=== PATIENT | female | born 1935 | race Caucasian/White ===

== ENCOUNTER 2019-05-16 21:45 | Inpatient (IN) ==
[2019-05-16 22:14] LABS: ABG Base Excess 6 mEq/L (-2 to 3); ABG HCO3 32 mEq/L (21-27); ABG Oxygen Saturation 94 % (95-98); ABG PCO2 55 mmHg (35-45); ABG PH 7.38 pH Units (7.32-7.45); ABG PO2 74 mmHg (85-104); ABG TCO2 34 mEq/L (20-26)
[2019-05-16] MEDS ORDERED: Naloxone 0.4 MG/ML INJ IVP PRN (22:16)
[2019-05-16 23:00] LABS: Basophils % 0.1 %; Hematocrit 35.2 % (35.3-44.9); Hemoglobin 10.6 g/dL (11.5-15.4); Immature Granulocytes % 0.8 % (0-4); Lymphocytes # 0.4 K/mcL (0.6-4.6); Lymphocytes % 2.7 %; Mean Corpuscular HGB Conc 30.1 g/dL (31.6-35.5); Mean Corpuscular Hemoglobin 29.2 pg (28.0-33.3); Mean Platelet Volume 11.4 fL (9.4-12.4); Monocytes % 6.5 %; Neutrophils # 13.1 K/mcL (1.6-8.9); Platelet Count 147 K/mcL (140-400); Red Blood Count 3.63 M/mcL (3.82-4.97); Red Cell Distribution Width 13.1 % (11.5-14.5); Segmented Neutrophils % 89.9 %; White Blood Count 14.6 K/mcL (4.3-11.1)
[2019-05-16 23:08] LABS: Prothrombin Time 11.6 Seconds (9.4-12.1)
[2019-05-16 23:10] LABS: Activated Partial Thrombo Time 79.1 Seconds (26.0-36.0)
[2019-05-16 23:18] LABS: Albumin 4.1 g/dL (3.5-5.7); Albumin/Globulin Ratio 1.7 (1.1-2.2); Bilirubin,Total 0.2 mg/dL (0.3-1.0); Globulin 2.4 g/dL (2.4-3.5); Magnesium 2.2 mg/dL (1.6-2.6); Potassium 4.6 mEq/L (3.5-5.1); Total Protein 6.5 g/dL (6.4-8.9)
[2019-05-16] MEDS ORDERED: *HR* Heparin 5,000 UNIT/ML VIAL IVP PRN ×2 (23:39)
[2019-05-16] MEDS ORDERED: Heparin 25,000 UNIT/250 ML D5W 25,000 UNIT/250 ML IV.SOLN IVC SCH (23:45)
[2019-05-17 00:02] LABS: Bilirubin,Urine Negative (Negative); Blood,Urine Small (Negative); Clarity,Urine Clear (Clear); Color,Urine Yellow (Yellow); Glucose,Urine (UA) Normal (Normal); Ketones,Urine Negative (Negative); Leukocyte Esterase,Urine Negative (Negative); Nitrite,Urine Negative (Negative); Protein,Urine 100 mg/dL (Neg-Trace); Urobilinogen,Urine Normal (Normal)
[2019-05-17 00:12] LABS: Bacteria,Urine None Seen per hpf (None-Few); Hyaline Casts,Urine None Seen per lpf (None-Few); RBC,Urine 15-30 per hpf (0-3); Squamous Epithelial Cell,Urine Moderate per lpf (None-Few)
[2019-05-17 00:27] LABS: Hematocrit 36.2 % (35.3-44.9); Hemoglobin 10.9 g/dL (11.5-15.4); Mean Corpuscular HGB Conc 30.1 g/dL (31.6-35.5); Mean Corpuscular Hemoglobin 29.8 pg (28.0-33.3); Mean Corpuscular Volume 98.9 fL (83.0-100.0); Mean Platelet Volume 11.4 fL (9.4-12.4); Platelet Count 140 K/mcL (140-400); Red Blood Count 3.66 M/mcL (3.82-4.97); Red Cell Distribution Width 12.9 % (11.5-14.5)
[2019-05-17] MEDS ORDERED: Furosemide 40 MG/4 ML VIAL IVP ONE (03:25)
[2019-05-17] MEDS: Ipratropium/Albuterol Neb 3 ML IH SCH ×4 (05:05→19:51)
[2019-05-17] MEDS ORDERED: MethylPREDNISolone 40 MG/ML VIAL IVP SCH ×2 (06:00→08:30)
[2019-05-17 06:47] LABS: Albumin 3.9 g/dL (3.5-5.7); Albumin/Globulin Ratio 1.8 (1.1-2.2); Bilirubin,Total 0.3 mg/dL (0.3-1.0); Globulin 2.2 g/dL (2.4-3.5); Potassium 4.6 mEq/L (3.5-5.1); Total Protein 6.1 g/dL (6.4-8.9)
[2019-05-17] MEDS ORDERED: *HR* Labetalol 20 MG/4 ML SYRINGE IVP PRN (08:28)
[2019-05-17] MEDS ORDERED: levoFLOXacin 500 MG/100 ML 500 MG/100 ML BAG IVPB SCH (09:00)
[2019-05-17] MEDS ORDERED: Aspirin Enteric Coated 81 MG Tablet PO SCH (11:23)
[2019-05-17] MEDS ORDERED: Furosemide 40 MG/4 ML VIAL IVP SCH (12:00)
[2019-05-17] MEDS ORDERED: ALPRAZolam 0.5 MG TABLET PO SCH (15:46)
[2019-05-17] MEDS ORDERED: carvediloL 6.25 MG TABLET PO SCH (17:00)
[2019-05-17 19:47] VITALS: BP 199/90
== END 2019-05-17 21:16 | disposition other institution (70) | DRG 280 ==
LOC: 2NENU → SUATTDRO 22:16
PROVIDERS: ADMIT Internal Medicine; ATTEND Internal Medicine

== ENCOUNTER 2019-05-17 16:13 | Inpatient (IN) ==
--- NOTE | 2019-05-17 16:39 | Pallative History & Physical ---
<RogelioEdita K - Last Filed: 05/17/19 17:22> Date of Encounter: 05/17/19 Time of Encounter: 16:37 Assessment and Plan (1) Goals of care, counseling/discussion Status: Acute Pt currently does not have capacity to make decisions d/t AMS. Pt's son Xavier is HPOA, paperwork located in chart. Family meeting today with multiple family members and Xavier (HPOA). We discussed her clinical condition, prognosis, and treatment options in the context of her values, preferences and goals. Family voices that they know her wishes would be to focus on comfort and avoid invasive procedures and life-prolonging measures. Family has chosen to focus on full comfort care and transition to [facility] hospice care for poorly controlled dyspnea. (2) Shortness of breath Status: Acute Start oxycodone 5mg oral solution SL Q2hr PRN for pain or shortness of breath. Fan to face PRN. (3) Anxiety Status: Acute Pt's 0.5mg daily Xanax restarted today. Start Ativan 1mg SL Q4hr PRN for anxiety. (4) Agitation Status: Acute Start Haldol 0.5mg IV/PO Q6hr PRN for agitation. (5) NSTEMI (non-ST elevated myocardial infarction) Status: Acute (6) Acute and chronic respiratory failure Status: Acute Pt may use Bipap/oxygen for comfort if she wishes. Qualifiers: Respiratory failure complication: hypoxia Qualified Code(s): J96.21 - Acute and chronic respiratory failure with hypoxia (7) Pneumonia Status: Acute Plan to continue antibiotics for now. Qualifiers: Lung location: unspecified part of lung Qualified Code(s): J18.9 - Pneumonia, unspecified organism (8) APPLE (acute kidney injury) Status: Acute (9) Atrial fibrillation Status: Acute Stop Heparin. Qualifiers: Atrial fibrillation type: chronic Qualified Code(s): I48.2 - Chronic atrial fibrillation (10) Palliative care by specialist Status: Acute Internal Medicine - H&P: HPI Chief complaint: shortness of breath Admitted From: Intrahospital Transfer Plans for Post Hospital Care: Hospice - Home History of present illness: Ms. Macdonald is a 83 year old female with hx of COPD, CKD, atrial fibrillation on Eliquis, was admitted overnight d/t NSTEMI and acute respiratory failure secondary to decompensated HF. Pt is currently BiPap dependent. Pt frequently requesting to go home, she has been intermittently confused and has had difficulty tolerating BiPap. Palliative Care was consulted today to assist with goals of care. Past Med Surg Social Fam HX - Past Medical History Medical history: atrial fibrillation, COPD, hypertension, renal disease, TIA, ot her Additional medical history: Primary hyperparathyroidism, hypercalcemia, chronic anemia Psychiatric history: no psych history - Past Surgical History Surgical History: hysterectomy Additional surgical history: Left carotid endarterectomy 2003, ORIF ankle, bilateral cataracts, dupyutrens contracture ring finger - Social History Smoking Status: Former smoker Smokeless Tobacco Status: No Alcohol use: none Drug use: none Current living situation: Home - Family History Mother Living Status: Father Living Status: Hx Family Neuromuscular Disorders: Yes (Parkinson) Internal Medicine - H&P: Meds ALPRAZolam [Xanax 1 MG Tablet] 0.5 mg PO HS 09/06/18 [History] Ascorbic Acid [Vitamin C] 1,000 mg PO BID 09/06/18 [History] Citalopram Hydrobromide [Citalopram HBr] 10 mg PO DAILY 09/06/18 [History] [place]-3 Fatty Acids/Fish Oil [Cvs Fish Oil 1,200 mg Softgel] 1,000 mg PO HS 09/06/18 [History] Ubidecarenone [Coq10] 200 mg QAM 09/06/18 [History] cloNIDine HCl [CloNIDine HCl] 0.2 mg PO HS 09/06/18 [History] hydrALAZINE [HydrALAZINE] 25 mg PO BID 09/06/18 [History] Cinacalcet [Sensipar] 30 mg PO DAILY 05/17/19 [History] Diltiazem CD (24hr) [Cardizem CD] 120 mg PO HS 05/17/19 [History] Allergy/AdvReac Type Severity Reaction Status Date / Time sulfamethoxazole Allergy Nausea Verified 05/08/15 12:42 [From Septra] trimethoprim [From Septra] Allergy Nausea Verified 05/08/15 12:42 diazepam [From Valium] AdvReac Fatigued Verified 05/08/15 12:42 Uirmgnf-Psb-Siv Reductase AdvReac Anxiety Verified 05/08/15 12:42 Inhibitor [Statins] ROS unobtainable: due to mental status Palliative Care-Exam - Other Additional findings: CONSTITUTIONAL/GENERAL: Awake, interactive, confused, anxious appearing, lying in bed. EYES: Pupils symmetric; non pinpoint. Ear/Nose/Mouth/Throat (EMNT): Patent, atraumatic. Dressing to nose. CARDIOVASCULAR: Tachycardia noted; No edema. No cyanosis/ischemia. RESPIRATORY: Slightly labored, on BiPap. GASTROINTESTINAL: Soft, non-distended. Hypoactive bowel sounds. GENITOURINARY: Catheter present. MUSCULOSKELETAL: No deformities; No joint swelling or erythema. INTEGUMENTARY: No rashes or lesions noted. NEUROLOGIC: Awake, interactive, confused on exam. PSYCHIATRY: Unable to fully assess d/t mental status. Palliative Quality Palliative Quality: Screen for Code Status: Yes, Screen for Goals of Care: Yes, Screen for Pain: Yes, If Pain Regimen Started, Initiate Bowel Regimen: NA, Screen for Nausea/Vomitting: NA Code Status: DNRCC <Hoa Saez - Last Filed: 05/17/19 20:15> Date of Encounter: 05/17/19 Internal Medicine - H&P: HPI History of present illness: Ms. Macdonald is a 83 year old female Palliative Quality Code Status: 05/17/19 17:05 Resuscitation Status: Active [RES] Routine Comment: Resuscitation Status: DNR-Comfort Care - Attending Attestation I examined this patient and my medical decision-making was reviewed with the palliative care HARDWARE TRAINER Edita Mercado . I agree with the documented findings, disposition and treatment plan as described except to the extent set forth below. Ms. Macdonald is an 83 year old female with hx of COPD, CKD, atrial fibrillation on Eliquis, that was admitted overnight d/t NSTEMI and acute respiratory failure secondary to decompensated HF. Pt is currently BiPap dependent, and repeatedly requesting to go home, she has been intermittently confused and has had difficulty tolerating BiPap. Palliative Care was consulted today to assist with goals of care. [id number]: conducted meeting with several of patient's family members, including [place], along with Chaplain Chakraborty, PC Resident Dr. Casas and PC HARDWARE TRAINER Edita. Discussed current medical condition, trajectory of illness, treatment options and overall poor prognosis. Family unanimously stated that pt just want ed conservative management, with focus to comfort. Discussed hospice phylosophy and services, and family was agreeable. Plan: Patient at his time needs GIP for management of dyspnea. BiPAP prn as tolerated by patient start Morphine 5 mg q4hrs prn Ativan and Haldol for anxiety and agitation will continue ABX for pneumonia for now Discontinue Heparin drip Continue current chronic medication pending clinical course Dispo: At home patient is cared for by a daughter, and the rest of the family does not appear able to participate in the hands-on care. Patient is asking continuously to return home. plan to be better determined pending clinical course.
[2019-05-17] MEDS ORDERED: *HR* LORazepam Oral Conc 2 MG/ML PO PRN (17:05)
[2019-05-17] MEDS ORDERED: Ipratropium/Albuterol Neb 3 ML IH PRN (17:10)
[2019-05-17] MEDS ORDERED: MethylPREDNISolone 40 MG/ML VIAL IVP SCH (22:15)
[2019-05-17] MEDS ORDERED: hydrALAZINE 25 MG TABLET PO ONE (22:21)
[2019-05-17] MEDS ORDERED: levoFLOXacin 500 MG/100 ML 500 MG/100 ML BAG IVPB SCH (23:00)
[2019-05-17] MEDS: Sennosides/Docusate Sodium TABLET PO SCH (23:02)
[2019-05-17] MEDS: ALPRAZolam 0.5 MG TABLET PO SCH (23:02)
[2019-05-18] MEDS: Haloperidol Oral Conc 10 MG/5 ML UDC PO PRN ×2 (02:58→10:56)
[2019-05-18] MEDS: Sennosides/Docusate Sodium TABLET PO SCH ×2 (07:54→20:41)
[2019-05-18] MEDS: ALPRAZolam 0.5 MG TABLET PO SCH ×2 (07:54→20:41)
[2019-05-18] MEDS: Furosemide 20 MG TABLET PO SCH (07:54)
[2019-05-18] MEDS ORDERED: ALPRAZolam 0.5 MG TABLET PO SCH (09:00)
[2019-05-18] MEDS ORDERED: Aspirin 81 MG TAB.CHEW PO SCH (09:00)
--- NOTE | 2019-05-18 10:40 | Palliative Progress Note ---
Date of Encounter: 05/18/19 Time of Encounter: 09:15 - Assessment and plan (1) Acute and chronic respiratory failure Current Visit: No Status: Acute Assessment and plan: Patient today is breathing more comfortably. Family decided against Bipap even prn. continue oxygen supplementation by ks. Oxycodone 5mg SL prn in place, pt did not need any doses. Qualifiers: Respiratory failure complication: hypoxia Qualified Code(s): J96.21 - Acute and chronic respiratory failure with hypoxia (2) Anxiety Current Visit: No Status: Acute Assessment and plan: Pt was agitated this morning, received Xanax and lorazepam. Now is confused and fidgety. Will avoid lorazepam, start haldol BID schedued, and prn, Xanax qhs per home dose. (3) Shortness of breath Current Visit: No Status: Acute Assessment and plan: improving. Oxycodone prn in place. (4) Cough Current Visit: Yes Status: Acute Assessment and plan: Ptient has upper airways congestion. marcos Avalos. (5) Hypertension Current Visit: No Status: Chronic Assessment and plan: Restarted patient's home medications Hydralazine and Carvedilol. Qualifiers: Hypertension type: essential hypertension Qualified Code(s): I10 - Essential (primary) hypertension (6) Goals of care, counseling/discussion Current Visit: No Status: Acute Assessment and plan: 30 minutes conversation with daughter Laura, primary caregiver. Medication review completed, patient lost her IV access. Also, pneumonia is low suspicion, so will d/c ABX. in settings of acute respiratory distress and COPD, will change steroids t PO for 3 more days. Patient has not had aspirin and plavix for at least 2 years per daughter, will d/c. Pt was on eliquis for afib, but suffered a GI bleed in 09/04, so it was stopped. Patient is stabilizing, but not yet back to baseline. Daughter is working on obtaining more help for Ame to return home. Explained again the role and services offered by hospice. Patient to [facility] in [facility], with plan to return home with hospice an Monday05/21/19 if she remains stable. (7) Palliative care by specialist Current Visit: No Status: Acute (8) APPLE (acute kidney injury) Current Visit: No Status: Acute (9) Atrial fibrillation Current Visit: No Status: Chronic Qualifiers: Atrial fibrillation type: paroxysmal Qualified Code(s): I48.0 - Paroxysmal atrial fibrillation (10) NSTEMI (non-ST elevated myocardial infarction) Current Visit: No Status: Acute - Time Spent With Patient Total time spent is greater than 50% in coordination of care (as documented) at patient's floor/unit and/or counseling patient: - Subjective Interval history: Patient is awake, confused. She believes she is at home, and cntinues to pull an her sheet. Her breathing is calm and comfortable. She exhibit some cough. Daughter at the bedside. - Constitutional Exam: Vitals reviewed General appearance: thin,in no acute distress Eyes: nonicteric, EOMI EENT: oropharynx moist Neck: supple, no lymphadenopathy, no JVD Chest: bilateral: upper airways congestion, reduced air entry Cardiovascular: regular rate and rhythm, no murmur, rub, gallop Gastrointestinal: soft, non-tender, non-distended Integumentary: normal, intact Extremities: no cyanosis, no edema, no clubbing, normal capillary refill Musculoskeletal: no deformities Neurologic: AAOx1, non-focal exam Psych: agitated, confused Palliative Quality Palliative Quality: Screen for Code Status: Yes, Screen for Goals of Care: Yes, Screen for Pain: Yes, If Pain Regimen Started, Initiate Bowel Regimen: NA, Screen for Nausea/Vomitting: NA Code Status: 05/17/19 17:05 Resuscitation Status: Active [RES] Routine Comment: Resuscitation Status: DNR-Comfort Care
[2019-05-18] MEDS: hydrALAZINE 25 MG TABLET PO SCH ×2 (10:51→16:58)
[2019-05-18] MEDS ORDERED: Haloperidol Oral Conc 10 MG/5 ML UDC PO PRN (11:13)
[2019-05-19] MEDS: hydrALAZINE 25 MG TABLET PO SCH ×3 (00:15→16:12)
[2019-05-19] MEDS: predniSONE 10 MG TABLET PO SCH (08:56)
[2019-05-19] MEDS: Furosemide 20 MG TABLET PO SCH (08:56)
[2019-05-19] MEDS: Sennosides/Docusate Sodium TABLET PO SCH ×2 (08:56→21:25)
[2019-05-19] MEDS ORDERED: Bisacodyl 10 MG RECTAL SUPPOSITORY RC PRN (15:42)
--- NOTE | 2019-05-19 15:45 | Palliative Progress Note ---
Date of Encounter: 05/19/19 Time of Encounter: 14:45 - Assessment and plan (1) Constipation Current Visit: Yes Status: Acute Assessment and plan: Will add Dulcolax suppository and spoke with primary nurse Floridalma regarding giving one today. Continue Senokot. (2) Generalized pain Current Visit: Yes Status: Acute Assessment and plan: Continue Oxycodone - utilized x 1 last 24 hours. Patient is having a great deal of discomfort with catheter pressure. Offered to begin Antispasmotic, however, patient would like to try sommer out and see how she does urinating on her own. Family at bedside in agreement - monitor UOP. (3) Acute and chronic respiratory failure Current Visit: No Status: Acute Qualifiers: Respiratory failure complication: hypoxia Qualified Code(s): J96.21 - Acute and chronic respiratory failure with hypoxia (4) Agitation Current Visit: No Status: Acute Assessment and plan: Continue Haldol as ordered. MOnitor. She is calm and pleasant today. (5) Congestive heart disease Current Visit: No Status: Acute Qualifiers: Heart failure type: unspecified Heart failure chronicity: acute on chronic Qualified Code(s): I50.9 - Heart failure, unspecified (6) COPD (chronic obstructive pulmonary disease) Current Visit: No Status: Acute Qualifiers: Emphysema type: unspecified Qualified Code(s): J43.9 - Emphysema, unspecified (7) NSTEMI (non-ST elevated myocardial infarction) Current Visit: No Status: Acute (8) Palliative care by specialist Current Visit: No Status: Acute - Time Spent With Patient Total time spent is greater than 50% in coordination of care (as documented) at patient's floor/unit and/or counseling patient: 25 - 35 minutes - Subjective Interval history: Patient awake and alert - daughter n law at bedside. Patient states that catheter is causing her pressure and discomfort. She is asking for it to be removed. Also c/o constipation. Blood pressure remains elevated, but is down some since Hydralazine has been restarted. - Constitutional General appearance: Present: no acute distress - Respiratory Respiratory exam: Present: decreased breath sounds, CTAB - Cardiovascular Cardiovascular exam: Present: +S1, +S2 - GI/Abdominal GI/Abdominal exam: Present: soft, tenderness - Additional comments: sommer with clear yellow urine - Extremities Exam Extremities exam: Present: normal capillary refill, normal inspection - Neurological Exam Neurological exam: Present: alert, oriented X3, strengths equal and symetr throughout - Skin Skin exam: Present: dry, pallor, warm Palliative Quality Palliative Quality: Screen for Code Status: Yes, Screen for Goals of Care: Yes, Screen for Pain: Yes, If Pain Regimen Started, Initiate Bowel Regimen: NA, Screen for Nausea/Vomitting: NA Code Status: 05/17/19 17:05 Resuscitation Status: Active [RES] Routine Comment: Resuscitation Status: DNR-Comfort Care
[2019-05-19] MEDS: ALPRAZolam 0.5 MG TABLET PO SCH (21:25)
[2019-05-20] MEDS: hydrALAZINE 25 MG TABLET PO SCH ×4 (00:35→23:28)
[2019-05-20] MEDS: Furosemide 20 MG TABLET PO SCH (08:37)
[2019-05-20] MEDS: predniSONE 10 MG TABLET PO SCH (08:38)
[2019-05-20] MEDS: Sennosides/Docusate Sodium TABLET PO SCH ×2 (08:38→20:27)
--- NOTE | 2019-05-20 11:43 | Palliative Progress Note ---
Date of Encounter: 05/20/19 Time of Encounter: 10:50 - Assessment and plan (1) Constipation Current Visit: Yes Status: Acute Assessment and plan: Continues on Senokot. Had suppository yesterday and staff removed some hard stool. Patient asking for magnesium citrate - will order x 1 today. (2) Generalized pain Current Visit: Yes Status: Acute Assessment and plan: Continue Oxycodone PRN - has not utilized the last 24 hours. (3) Agitation Current Visit: No Status: Acute Assessment and plan: Continues scheduled Xanax at hs. Haloperidol is available PRN but has not utilized. (4) Hospice care Current Visit: Yes Status: Acute Assessment and plan: Patient symptoms well controlled and daughter ready to take her home tomorrow. She would like to transport before lunch. Will discuss with hospice team in am. (5) Acute and chronic respiratory failure Current Visit: No Status: Acute Qualifiers: Respiratory failure complication: hypoxia Qualified Code(s): J96.21 - Acute and chronic respiratory failure with hypoxia (6) Congestive heart disease Current Visit: No Status: Acute Qualifiers: Heart failure type: unspecified Heart failure chronicity: acute on chronic Qualified Code(s): I50.9 - Heart failure, unspecified (7) COPD (chronic obstructive pulmonary disease) Current Visit: No Status: Acute Qualifiers: Emphysema type: unspecified Qualified Code(s): J43.9 - Emphysema, unspecified (8) NSTEMI (non-ST elevated myocardial infarction) Current Visit: No Status: Acute (9) Palliative care by specialist Current Visit: No Status: Acute - Time Spent With Patient Total time spent is greater than 50% in coordination of care (as documented) at patient's floor/unit and/or counseling patient: - Subjective Interval history: Patient awake and alert - daughter at bedside. Vital stable. Denies complaints other than constipation. Drinking prune juice. She is much more comfortable with sommer removed. Voided this am. - Constitutional General appearance: Present: no acute distress - Respiratory Respiratory exam: Present: decreased breath sounds, CTAB - Cardiovascular Cardiovascular exam: Present: +S1, +S2 - GI/Abdominal GI/Abdominal exam: Present: distended, normal bowel sounds, soft - Additional comments: Incontinent - Extremities Exam Extremities exam: Present: normal capillary refill, normal inspection - Neurological Exam Neurological exam: Present: alert Additional comments: Alert and oriented to name and place - Skin Skin exam: Present: dry, pallor, warm Palliative Quality Palliative Quality: Screen for Code Status: Yes, Screen for Goals of Care: Yes, Screen for Pain: Yes, If Pain Regimen Started, Initiate Bowel Regimen: NA, Screen for Nausea/Vomitting: NA Code Status: 05/17/19 17:05 Resuscitation Status: Active [RES] Routine Comment: Resuscitation Status: DNR-Comfort Care
[2019-05-20] MEDS: ALPRAZolam 0.5 MG TABLET PO SCH (20:27)
[2019-05-21 08:08] VITALS: BP 177/81
[2019-05-21] MEDS: predniSONE 10 MG TABLET PO SCH (08:51)
[2019-05-21] MEDS: hydrALAZINE 25 MG TABLET PO SCH (08:51)
[2019-05-21] MEDS: Sennosides/Docusate Sodium TABLET PO SCH (08:51)
[2019-05-21] MEDS: Furosemide 20 MG TABLET PO SCH (08:52)
--- NOTE | 2019-05-21 09:09 | Palliative Progress Note ---
Date of Encounter: 05/21/19 Time of Encounter: 08:50 - Assessment and plan (1) Cough Current Visit: Yes Status: Acute Assessment and plan: PRN Robitussin ordered for symptom control (2) Hospice care Current Visit: Yes Status: Acute Assessment and plan: Patient is currently GIP. Plans for discharge today to home hospice. - Time Spent With Patient Total time spent is greater than 50% in coordination of care (as documented) at patient's floor/unit and/or counseling patient: 25 - 35 minutes - Subjective Interval history: Ms. Macdonald is a 83 year old female admitted to the GIP service with a past history of COPD, CKD, atrial fibrillation on Eliquis, was admitted d/t NSTEMI and acute respiratory failure secondary to decompensated HF, where she had a change in mental status and became confused. She has been tolerating being off of Bipap and is currently on nasal cannula. She is alert and oriented x 3 today. She reports feelings of pain all over, saying that her muscles are aching. She says that her breathing is better, although she is still having a cough. She says that she is having a good appetite. Per nursing she has only been out of bed to use the commode. She has not sat in a chair. She reports she is ready to return home today. - Constitutional General appearance: Present: average body habitus, no acute distress - Head Head exam: Present: atraumatic, normocephalic - ENT ENT exam: Present: mucous membranes moist - Neck Neck exam: Present: full ROM - Respiratory Respiratory exam: Present: accessory muscle use, rhonchi, wheezes Additional comments: clear on inhalation with rhonchi and wheezing on exhalation. Wearing nasal cannula - Cardiovascular Cardiovascular exam: Present: RRR, +S1, +S2 - GI/Abdominal GI/Abdominal exam: Present: soft Additional comments: mild tenderness, she reports due to her muscle aches - Extremities Exam Extremities exam: Absent: pedal edema - Neurological Exam Neurological exam: Present: alert, oriented X3 - Psychiatric Psychiatric exam: Present: normal affect Palliative Quality Palliative Quality: Screen for Code Status: Yes, Screen for Goals of Care: Yes, Screen for Pain: Yes, If Pain Regimen Started, Initiate Bowel Regimen: NA, Screen for Nausea/Vomitting: NA Code Status: 05/17/19 17:05 Resuscitation Status: Active [RES] Routine Comment: Resuscitation Status: DNR-Comfort Care Palliative Scale - Palliative Performance Scale How ambulatory is this patient?: Mainly in bed What is patient's level of activity and evidence of disease?: Unable to do any work, Extensive disease How much self-care assistance does patient require?: Mainly assistance How much oral intake does the patient have?: Normal What is this patient's level of consciousness?: Full Palliative Performance Score: 40 %
[2019-05-21] MEDS ORDERED: GuaiFENesin Liq 200 MG/10 ML UDC PO PRN (09:13)
--- NOTE | 2019-05-21 09:24 | Discharge Summary ---
<Luisa Casas B - Last Filed: 05/21/19 11:54> Date of Encounter: 05/21/19 Time of Encounter: 09:00 - Discharge Diagnosis (1) Cough Priority: Secondary Status: Acute (2) Generalized pain Priority: Secondary Status: Acute (3) Acute and chronic respiratory failure Priority: Primary Status: Acute Qualifiers: Respiratory failure complication: hypoxia Qualified Code(s): J96.21 - Acute and chronic respiratory failure with hypoxia (4) Anxiety Priority: Secondary Status: Chronic (5) Atrial fibrillation Priority: Secondary Status: Chronic Qualifiers: Atrial fibrillation type: chronic Qualified Code(s): I48.2 - Chronic atrial fibrillation (6) COPD (chronic obstructive pulmonary disease) Priority: Primary Status: Chronic Qualifiers: Emphysema type: unspecified Qualified Code(s): J43.9 - Emphysema, unspecified (7) NSTEMI (non-ST elevated myocardial infarction) Priority: Primary Status: Acute - Hospital Course Hospital course: Ms. Macdonald is a 83 year old female admitted to the [facility] service with a past history of COPD, CKD, atrial fibrillation on Eliquis, was admitted d/t NSTEMI and acute respiratory failure secondary to decompensated HF. where she had a change in mental status and became confused. She was transferred to the [facility] hospice service for the management of her dyspnea on 05/17/19. A goals of care discussion was had with the patient and with the patient's family. The patient expressed strong desires to return to her home. Her son, Xavier who is her HPOA made the decision to focus on full comfort care. Patients symptoms were being managed on Bipap, however the patient did not like using the Bipap, so it was made PRN with the patient using nasal cannula when not on Bipap, eventually the Bipap was discontinued by family request. Her medications were adjusted to help make her comfortable. Patient received PRN pain medications. She received medications to assist with her constipation. She received medications to assist with her anxiety and pain. On day of discharge she has been tolerating being off of Bipap and is currently on nasal cannula. She is alert and oriented x 3 today. She reports feelings of pain all over, saying that her muscles are aching. She says that her breathing is better, although she is still having a cough. She says that she is having a good appetite. Per nursing she has only been out of bed to use the commode. She has not sat in a chair. She reports she is ready to return home today. - Time Spent with Patient Total time spent providing and/or coordinating discharge services: Greater than 30 minutes - Discharge Medications Prescriptions: New Citalopram [CeleXA] 10 mg PO DAILY tablet Carvedilol [Coreg] 3.125 mg PO BIDWM 30 Days #60 tablet Ipratropium/Albuterol Neb [Duoneb] 3 ml IH [id number] PRN inhsol PRN Reason: Shortness Of Breath/Wheezing hydrALAZINE [HydrALAZINE] 25 mg PO Q8HR tablet OxyCODONE Oral CONC [Oxycodone Oral Conc] 5 mg SL Q4HR PRN 4 Days #5 oral.syg PRN Reason: Dyspnea Sennosides/Docusate Sodium [Senna Plus] 1 each PO BID 30 Days #60 tablet ALPRAZolam [Xanax 0.5 MG Tablet] 0.5 mg PO HS tablet Diltiazem CD (24hr) [Cardizem CD] 120 mg PO DAILY 30 Days #30 cap.er.24h GuaiFENesin Liq [Robitussin Liq] 200 mg PO Q6HR PRN 5 Days #100 mls PRN Reason: Cough Home Medications: ALPRAZolam [Xanax 0.5 MG Tablet] 0.5 mg PO HS tablet 05/21/19 [Rx] Carvedilol [Coreg] 3.125 mg PO BIDWM 30 Days #60 tablet 05/21/19 [Rx] Citalopram [CeleXA] 10 mg PO DAILY tablet 05/21/19 [Rx] Diltiazem CD (24hr) [Cardizem CD] 120 mg PO DAILY 30 Days #30 cap.er.24h 05/21/19 [Rx] GuaiFENesin Liq [Robitussin Liq] 200 mg PO Q6HR PRN 5 Days #100 mls 05/21/19 [Rx] Ipratropium/Albuterol Neb [Duoneb] 3 ml IH [id number] PRN inhsol 05/21/19 [Rx] OxyCODONE Oral CONC [Oxycodone Oral Conc] 5 mg SL Q4HR PRN 4 Days #5 oral.syg 05/21/19 [Rx] Sennosides/Docusate Sodium [Senna Plus] 1 each PO BID 30 Days #60 tablet [Rx] hydrALAZINE [HydrALAZINE] 25 mg PO Q8HR tablet 05/21/19 [Rx] Allergies/Adverse Reactions: Allergy/AdvReac Type Severity Reaction Status Date / Time sulfamethoxazole Allergy Nausea Verified 05/18/19 16:44 [From Septra] trimethoprim [From Septra] Allergy Nausea Verified 05/18/19 16:44 diazepam [From Valium] AdvReac Fatigued Verified 05/18/19 16:44 [id number] Reductase AdvReac Anxiety Verified 05/18/19 16:44 Inhibitor [Statins] Internal Medicine - DS: Prov Date of admission: 05/17/19 21:36 Admitting clinician: Hoa Saez Attending physician on admission: Hoa Saez Consults: 05/17/19 17:05 Consult to Palliative Care [CONS] Routine Comment: Consulting Provider: [facility] Reason for Consult: GIP Time Notified: 17:09 Call Completed: Yes Attending physician on discharge: Hoa Saez Discharging clinician: Hoa Saez Anticipated date of discharge: 05/21/19 Internal Medicine - DS: Exam - Constitutional Vitals: Vital Signs Temp Pulse Resp BP Pulse Ox 05/21/19 08:02 97.6 F 79 17 177/81 96 05/20/19 19:41 98.8 F 62 15 160/75 95 Intake and Output 05/20/19 05/21/19 05/21/19 23:59 07:59 15:59 Other: Stool Size Moderate Large Small Stool Consistency loose loose loose liquid soft Stool Color Brown Green Brown # Voids 1 # Urine Diapers 1 # Bowel Movements 1 # Bowel Movement Diapers 1 Weight 58.8 kg General appearance: average body habitus, no acute distress - Head Head exam: Present: atraumatic, normocephalic - ENT ENT exam: Present: mucous membranes moist - Neck Neck exam: Present: full ROM - Respiratory Respiratory exam: Present: accessory muscle use, rhonchi, wheezes Additional comments: Patient was clear on inhalation and had rhonchi and wheezing on exhalation. Patient had a noticeable cough. - Cardiovascular Cardiovascular exam: Present: RRR, +S1, +S2. Absent: +S3, +S4, systolic murmur - GI/Abdominal GI/Abdominal exam: Present: normal bowel sounds, soft. Absent: tenderness - Extremities Exam Extremities exam: Absent: pedal edema Additional comments: Patient had generalized tenderness to touch, reporting it was due to sore muscles. - Back Exam Back exam: Present: normal inspection - Neurological Exam Neurological exam: Present: alert, oriented X3, no focal deficits - Psychiatric Psychiatric exam: Present: normal affect, normal mood - Patient Status Disposition: Hospice - Home Condition: Fair Functional capacity at discharge: wheelchair bound Overall status at discharge: patient is progressing back to baseline - Discharge Instructions Instructions: Atrial Fibrillation (DC), Acute Respiratory Distress Syndrome (DC), Chronic Obstructive Pulmonary Disease (DC) - Diet and Activity Activity: resume usual activities as tolerated, wear oxygen at all times Diet: regular diet <GabrielaHoa waters - Last Filed: 05/21/19 11:59> Date of Encounter: 05/21/19 - Discharge Diagnosis (1) Acute and chronic respiratory failure Status: Acute Qualifiers: Respiratory failure complication: hypoxia Qualified Code(s): J96.21 - Acute and chronic respiratory failure with hypoxia (2) Anxiety Status: Chronic (3) Shortness of breath Status: Acute (4) Cough Status: Acute (5) Hypertension Status: Chronic Qualifiers: Hypertension type: essential hypertension Qualified Code(s): I10 - Essential (primary) hypertension (6) Goals of care, counseling/discussion Status: Acute (7) Palliative care by specialist Status: Acute (8) APPLE (acute kidney injury) Status: Acute (9) Atrial fibrillation Status: Chronic Qualifiers: Atrial fibrillation type: paroxysmal Qualified Code(s): I48.0 - Paroxysmal atrial fibrillation (10) NSTEMI (non-ST elevated myocardial infarction) Status: Acute - Hospital Course Hospital course: Ms. Macdonald is a 83 year old female - Time Spent with Patient Total time spent providing and/or coordinating discharge services: Internal Medicine - DS: Prov Date of admission: 05/17/19 21:36 Consults: 05/17/19 17:05 Consult to Palliative Care [CONS] Routine Comment: Consulting Provider: [facility] Reason for Consult: GIP Time Notified: 17:09 Call Completed: Yes Internal Medicine - DS: Exam - Constitutional Vitals: Vital Signs Temp Pulse Resp BP Pulse Ox 05/21/19 08:02 97.6 F 79 17 177/81 96 05/20/19 19:41 98.8 F 62 15 160/75 95 Intake and Output 05/20/19 05/21/19 05/21/19 23:59 07:59 15:59 Intake Total 0 / 0 Output Total 0 / 0 Balance 0 / 0 Intake: Oral 0 / 0 Output: Urine 0 / 0 Other: Stool Size Moderate Large Small Stool Consistency loose loose loose liquid soft Stool Color Brown Green Brown # Voids 1 # Urine Diapers 1 # Bowel Movements 1 # Bowel Movement Diapers 1 Weight 58.8 kg - Attending Attestation I examined this patient and my medical decision-making was reviewed with the Resident Physician. I agree with the documented findings, disposition and treatment plan as described except to the extent set forth below. Patient this morning was AAO x2, feeling well and eager to return home. Met with daughter Laura, along with hospice nurse Mona. Discussed in details dispositions at home and discharge medications. Pt stable for discharge.
== END 2019-05-21 11:59 | disposition hospice, home (50) | DRG 280 ==
LOC: 2ANU 21:36
PROVIDERS: ADMIT Internal Medicine Hospice and Palliative Medicine; ATTEND Internal Medicine Hospice and Palliative Medicine